=== PATIENT | male | born 1970 | race Caucasian/White ===

== ENCOUNTER 2019-10-31 06:45 | Emergency (ER) | payer BC ==
[2019-10-31 06:59] VITALS: TEMP 98.2
[2019-10-31] MEDS ORDERED: PROPARACAINE 0.5% OPHTH DROPS 15 ML BTL BOTH EYES STA (07:24)
[2019-10-31] MEDS ORDERED: SODIUM CHLORIDE 0.9% 1,000 ML IV ONE (07:44)
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
[2019-10-31 08:11] LABS: Basophils % (A) 0 %; Eosinophils # (A) 0.2 k/uL (0-0.7); Eosinophils % (A) 3 %; HCT 37.1 % (39.0-53.0); HGB 12.3 gm/dL (13.0-17.5); Lymphocytes # (A) 1.2 k/uL (1.0-4.8); Lymphocytes % (A) 17 %; MCH 30.7 pg (25.0-35.0); MCV 93.1 fL (80.0-100.0); Mean Platelet Volume 7.1; Monocytes # (A) 0.4 k/uL (0-1.0); Monocytes % (A) 6 %; Neutrophils % (A) 71 %; Platelet Count 234 k/uL (150-450); RBC 3.99 m/uL (4.30-5.90); WBC 6.9 k/uL (3.8-10.6)
[2019-10-31 08:21] LABS: INR 1.5 (<1.2); Partial Thromboplastin Time 27.7 sec (22.0-30.0); Prothrombin Time 14.5 sec (9.0-12.0)
[2019-10-31 08:25] LABS: African American GFR (CKD) >90 (>60 ml/min/1.73 sqM); Anion Gap 11 mmol/L; Blood Urea Nitrogen 14 mg/dL (9-20); Carbon Dioxide 20 mmol/L (22-30); Chloride 108 mmol/L (98-107); Glucose 101 mg/dL (74-99); Non-African American GFR(CKD) >90 (>60 ml/min/1.73 sqM); Potassium 4.2 mmol/L (3.5-5.1); Sodium 139 mmol/L (137-145)
--- NOTE | 2019-10-31 09:13 | CT ---
EXAMINATION TYPE: CT sinus w con DATE OF EXAM: 10/31/2019 COMPARISON: None HISTORY: yellow tint to vision, black spots in vision, visual loss post tooth extraction. CT DLP: 426.5 mGycm Automated exposure control for dose reduction was used. CONTRAST: CT scan of the facial bones is performed with IV Contrast, patient injected with 100 mL of Isovue 300 . TECHNIQUE: CT scan of the sinuses is performed without contrast, axial images are obtained, coronal r eformatted images are also reviewed. FINDINGS: There is a defect in the left inferior maxillary wall on image 31 of the coronal series. Wi thin the left maxillary sinus there is high density seen on soft tissue window image 31 suggestive of blood products in this patient with recent tooth extraction. There is surrounding moderate mucosal t hickening of the left maxillary sinus. There is scant mucosal thickening of the lateral right maxilla ry sinus. Frontal sinuses are aplastic. Mastoid air cells are well aerated. Periapical lucencies are seen of the left maxillary teeth indicative of dental disease. More cranially there is limitation in evaluation given spray artifact from dental fillings. The orbits are symmetric with no evidence of globe rupture or lens dislocation. Symmetric prominence of the visualized peripheral sulci and ventricular system are likely on the basis of age-related volu me loss. Evaluation of the brain is not optimized given protocol and only partial visualization. No i ntraconal or extraconal mass. IMPRESSION: 1. Focal osseous defect in the left inferior maxillary wall likely at the site of tooth extraction, c orrelate with patient's stated to the extraction site. Above the osseous defect in the dependent left maxillary sinus high density is seen, likely hemorrhage/hematoma. Moderate mucosal thickening of the left maxillary sinus is also noted. Multifocal dental disease is partially visualized. 2. Globes are symmetric. No lens displacement. No intraconal or extraconal mass seen.
[2019-10-31] MEDS ORDERED: RX INFO: IV CONTRAST WAS GIVEN 1 EACH MISC MISCELLANE PRN (09:51)
--- NOTE | 2019-10-31 10:12 | CT ---
EXAMINATION TYPE: CT brain w con DATE OF EXAM: 10/31/2019 COMPARISON: CT sinus of the same date. HISTORY: yellow tint to vision, black spots in vision, visual loss post tooth extraction CT DLP: 426.5 mGycm Automated Exposure Control for Dose Reduction was Utilized. TECHNIQUE: CT scan of the head is performed with IV contrast.,CT scan of the head is performed withou t and with with IV Contrast, patient injected with 100 mL of Isovue 300. FINDINGS: Noncontrast images were not obtained. Only portions of the orbits were scanned. Globes and the visualized portions appear symmetric with no visualization of intraconal or extraconal mass on th e limited images provided. The ventricles and sulci are within normal limits in size. Postcontrast im ages show no suspicious enhancing intraparenchymal mass. The globes are intact and frontal sinuses ar e hypoplastic. Scant mucosal thickening in the ethmoid sinuses. Sphenoid sinus also demonstrate scant mucosal thickening. Mastoid air cells are well aerated. IMPRESSION: 1. As discussed on the CT sinus dictation the same date no intraconal or extraconal mass is seen of t he orbits. Orbits are incompletely visualized on the current exam and better seen on the CT sinus exa m. 2. No abnormal intracranial enhancement. Evaluation for intracranial hemorrhage limited as no unenhan yessi images are submitted. 3. No midline shift or mass effect seen.
[2019-10-31 10:17] VITALS: RESP 16
[2019-10-31 11:06] VITALS: BP 139/78; PULSE 81
== END 2019-10-31 11:06 | disposition home or self-care (01) ==
LOC: EC 06:45
DX: H53.483 Generalized contraction of visual field, bilateral (principal); J34.89 Other specified disorders of nose and nasal sinuses; K91.840 Postprocedural hemorrhage of a digestive system organ or structure following a digestive system procedure; Z87.891 Personal history of nicotine dependence
CPT/HCPCS: 36415; 80048; 85025; 85610; 85730; 70460; 70487; 96360; 96361 ×2; 99284; Q9967

== ENCOUNTER → 2019-11-04 | Outpatient (CLI) | payer BC ==
--- NOTE | 2019-11-04 08:15 | US ---
EXAMINATION TYPE: US carotid duplex BILAT DATE OF EXAM: 11/04/2019 COMPARISON: NONE CLINICAL HISTORY: H53.12 Transient vision loss. Vision loss EXAM MEASUREMENTS: RIGHT: Peak Systolic Velocity (PSV) cm/sec ----- Right CCA: 87.5 ----- Right ICA: 117.7 ----- Right ECA: 123.3 ICA/CCA ratio: 1.3 RIGHT: End Diastole cm/sec ----- Right CCA: 23.7 ----- Right ICA: 52.9 ----- Right ECA: 14.9 LEFT: Peak Systolic Velocity (PSV) cm/sec ----- Left CCA: 77.9 ----- Left ICA: 86.8 ----- Left ECA: 123.3 ICA/CCA ratio: 1.1 LEFT: End Diastole cm/sec ----- Left CCA: 20.3 ----- Left ICA: 35.1 ----- Left ECA: 19.1 VERTEBRALS (direction of flow): Right Vertebral: Antegrade Left Vertebral: Antegrade Rhythm: Normal Bilateral intimal thickening, no elevated velocities, no significant stenosis. IMPRESSION: Mild degree of grayscale atheromatous plaquing with no sonographically evident hemodynam ically significant stenosis within either visualized carotid arterial system. Criteria for Assigning % of Stenosis / Diameter reduction (Estimation based on the indirect measurements of the internal carotid artery velocities (ICA PSV). 1. Normal (no stenosis)=ICA PSV < 125 cm/s: ratio < 2.0: ICA EDV<40 cm/s. 2. Less than 50% stenosis=ICA PSV < 125 cm/s: ratio < 2.0: ICA EDV<40 cm/s. 3. 50 to 69% stenosis=ICA PSV of 125 to 230 cm/s: ration 2.0 ? 4.0: ICA EDV 40-100 cm/s. 4. Greater than 70% stenosis to near occlusion= ICA PSV > 230 cm/s: ratio > 4.0: ICA EDV > 100 cm/s. 5. Near occlusion= ICA PSV velocities may be low or undetectable: variable ratio and ICA EDV. 6. Total occlusion=unable to detect flow.
[2019-11-04 20:36] LABS: Hemoglobin A1C 5.8 % (4.0-6.0)
== END | disposition home or self-care (01) ==
LOC: RADUSWWP 07:22
PROVIDERS: ATTEND Ophthalmology
DX: I67.2 Cerebral atherosclerosis (principal); H53.129 Transient visual loss, unspecified eye; E11.9 Type 2 diabetes mellitus without complications
CPT/HCPCS: 36415; 83036; 93880

== ENCOUNTER 2021-01-24 00:35 | Emergency (ER) | payer BC ==
[2021-01-24 00:49] VITALS: RESP 18
--- NOTE | 2021-01-24 01:13 | XR ---
EXAMINATION TYPE: XR shoulder complete LT DATE OF EXAM: 01/24/2021 COMPARISON: NONE HISTORY: Shoulder pain TECHNIQUE: 3 views FINDINGS: There is some spurring at the AC joint. I see no fracture nor dislocation. Joint spaces are normal. IMPRESSION: No acute abnormality of the left shoulder.
[2021-01-24] MEDS ORDERED: LIDOCAINE 5% PATCH TOPICAL STA (01:56)
[2021-01-24] MEDS ORDERED: KETOROLAC 15 MG/ML 1 ML VIAL IM STA (01:56)
[2021-01-24] MEDS ORDERED: ORPHENADRINE 30 MG/ML 2 ML VIAL IM STA (01:56)
[2021-01-24] MEDS ORDERED: HYDROmorphone 1 MG/ML 1 ML SYRINGE IM STA (01:57)
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
[2021-01-24 02:42] VITALS: BP 126/72; PULSE 72; TEMP 98.1
== END 2021-01-24 02:30 | disposition home or self-care (01) ==
LOC: EC 00:35
DX: M25.512 Pain in left shoulder (principal); M62.838 Other muscle spasm; M79.642 Pain in left hand; I10 Essential (primary) hypertension
CPT/HCPCS: 99283; 96372 ×2; 73030; J2360; J1170; J1885

== ENCOUNTER 2021-10-07 01:32 | Emergency (ER) | payer BC ==
[2021-10-07 01:35] VITALS: TEMP 97.7
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
--- NOTE | 2021-10-07 02:20 | CT ---
EXAMINATION TYPE: CT brain cspine wo con DATE OF EXAM: 10/07/2021 COMPARISON: HISTORY: Fall. Head injury CT DLP: mGycm Automated exposure control for dose reduction was used. Exam without contrast. Ventricles have normal size. There is no mass effect or midline shift. There is no sign of intracrani al hemorrhage. The calvarium is intact. There is normal aeration of the mastoid sinuses. Cervical vertebra have normal alignment. There is minor degenerative spurring in the mid and lower ce rvical spine. No compression fracture. Facet joints are intact. IMPRESSION: Minor degenerative spurring in the cervical spine. No fracture. Negative CT scan of the brain.
[2021-10-07] MEDS ORDERED: HYDROcodone/APAP 5-325MG 1 EACH TAB PO STA (03:22)
[2021-10-07 04:11] VITALS: BP 134/79; PULSE 88; RESP 16
== END 2021-10-07 04:13 | disposition home or self-care (01) ==
LOC: EC 01:32
DX: S09.90XA Unspecified injury of head, initial encounter (principal); I10 Essential (primary) hypertension; W22.09XA Striking against other stationary object, initial encounter
CPT/HCPCS: 70450; 72125; 99284

== ENCOUNTER 2021-10-15 17:48 | Emergency (ER) | payer BC ==
--- NOTE | 2021-10-15 19:24 | CT ---
EXAMINATION TYPE: CT brain cspine wo con DATE OF EXAM: 10/15/2021 COMPARISON: 10/07/2021 HISTORY: Head injury [address] DLP: 1627.1 mGycm Automated exposure control for dose reduction was used. Images of the brain and cervical spine obtained without contrast. Ventricles have normal size. There is no mass effect or midline shift. There is no sign of intracrani al hemorrhage. Calvarium is intact. There is normal aeration of the mastoid sinuses. Cervical vertebra have normal alignment. There is slight narrowing of the disc spaces at C5-6 and C6- 7. Posterior elements are intact. There is no compression fracture. Facet joints are intact. There is some minor degenerative hypertrophic disc changes in the lower cervical spine. IMPRESSION: Negative CT scan of the brain. Negative CT scan of the cervical spine. No change.
[2021-10-15 19:35] LABS: Basophils % (A) 0 %; Eosinophils # (A) 0.1 k/uL (0-0.7); Eosinophils % (A) 1 %; HCT 39.9 % (39.0-53.0); HGB 12.8 gm/dL (13.0-17.5); Lymphocytes % (A) 10 %; MCH 29.3 pg (25.0-35.0); MCHC 32.1 g/dL (31.0-37.0); MCV 91.4 fL (80.0-100.0); Mean Platelet Volume 6.8; Monocytes # (A) 0.4 k/uL (0-1.0); Monocytes % (A) 4 %; Neutrophils % (A) 83 %; Platelet Count 269 k/uL (150-450); RBC 4.36 m/uL (4.30-5.90); RDW 14.2 % (11.5-15.5); WBC 9.6 k/uL (3.8-10.6)
[2021-10-15 19:37] LABS: ALT 20 U/L (4-49); AST 47 U/L (17-59); African American GFR (CKD) >90 (>60 ml/min/1.73 sqM); Albumin 4.7 g/dL (3.5-5.0); Alkaline Phosphatase 137 U/L (38-126); Anion Gap 10 mmol/L; Blood Urea Nitrogen 15 mg/dL (9-20); Calcium 9.3 mg/dL (8.4-10.2); Carbon Dioxide 24 mmol/L (22-30); Chloride 100 mmol/L (98-107); Glucose 129 mg/dL (74-99); Non-African American GFR(CKD) >90 (>60 ml/min/1.73 sqM); Potassium 4.3 mmol/L (3.5-5.1); Sodium 134 mmol/L (137-145); Total Bilirubin 0.5 mg/dL (0.2-1.3); Total Protein 8.9 g/dL (6.3-8.2)
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
[2021-10-15 20:46] LABS: Partial Thromboplastin Time 47.3 sec (22.0-30.0); Prothrombin Time 58.9 sec (9.0-12.0)
[2021-10-15 20:47] VITALS: BP 153/85; PULSE 74; RESP 20; TEMP 98.2
[2021-10-15 20:50] LABS: INR 5.8 (<1.2)
== END 2021-10-15 20:47 | disposition home or self-care (01) ==
LOC: EC 17:48
DX: S06.0X9A Concussion with loss of consciousness of unspecified duration, initial encounter (principal); S00.03XA Contusion of scalp, initial encounter; R40.2412 Glasgow coma scale score 13-15, at arrival to emergency department; I10 Essential (primary) hypertension; W01.198A Fall on same level from slipping, tripping and stumbling with subsequent striking against other object, initial encounter
CPT/HCPCS: 36415; 70450; 72125; 80053; 85025; 85610; 85730; 99284

== ENCOUNTER → 2021-10-19 | Outpatient (CLI) | payer BC ==
[2021-10-19 21:44] LABS: INR 1.04 (0.90-1.11); Prothrombin Time 11.4 sec (9.9-11.9)
== END | disposition home or self-care (01) ==
LOC: LABWHC1 11:08
PROVIDERS: ATTEND Nurse Practitioner Family
DX: K90.89 Other intestinal malabsorption (principal)
CPT/HCPCS: 36415; 85610

== ENCOUNTER 2021-12-14 01:31 | Observation (INO) | payer BC ==
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
[2021-12-14] MEDS ORDERED: ONDANSETRON 4 MG/2 ML VIAL IVP STA (04:00)
[2021-12-14] MEDS ORDERED: SODIUM CHLORIDE 0.9% 1,000 ML IV STA (04:00)
[2021-12-14] MEDS ORDERED: MORPHINE SULFATE 4 MG/ML SYRINGE IV STA (04:00)
--- NOTE | 2021-12-14 04:08 | XR ---
EXAM: XR Abdomen, 2 Views CLINICAL HISTORY: ITS.REASON XR Reason: abdominal pain TECHNIQUE: Frontal view of the abdomen/pelvis with upright view of the abdomen. COMPARISON: No relevant prior studies available. FINDINGS: Intraperitoneal space: No free air. Gastrointestinal tract: Unremarkable. No dilation. Bones/joints: Unremarkable. IMPRESSION: Normal abdominal x-rays.
[2021-12-14 04:37] LABS: Basophils % (A) 0 %; Eosinophils # (A) 0.1 k/uL (0-0.7); Eosinophils % (A) 1 %; HCT 34.4 % (39.0-53.0); HGB 11.8 gm/dL (13.0-17.5); Lymphocytes # (A) 0.9 k/uL (1.0-4.8); Lymphocytes % (A) 11 %; MCH 31.1 pg (25.0-35.0); MCHC 34.3 g/dL (31.0-37.0); MCV 90.6 fL (80.0-100.0); Mean Platelet Volume 6.6; Monocytes # (A) 0.5 k/uL (0-1.0); Monocytes % (A) 6 %; Neutrophils # (A) 6.7 k/uL (1.3-7.7); Neutrophils % (A) 80 %; Platelet Count 194 k/uL (150-450); RBC 3.79 m/uL (4.30-5.90); WBC 8.3 k/uL (3.8-10.6)
[2021-12-14 05:10] LABS: ALT 16 U/L (4-49); AST 24 U/L (17-59); African American GFR (CKD) >90 (>60 ml/min/1.73 sqM); Albumin 3.7 g/dL (3.5-5.0); Alkaline Phosphatase 98 U/L (38-126); Amylase 59 U/L (30-110); Anion Gap 4 mmol/L; Blood Urea Nitrogen 9 mg/dL (9-20); Calcium 8.8 mg/dL (8.4-10.2); Carbon Dioxide 32 mmol/L (22-30); Chloride 102 mmol/L (98-107); Glucose 115 mg/dL (74-99); Lipase 203 U/L (23-300); Non-African American GFR(CKD) >90 (>60 ml/min/1.73 sqM); Potassium 3.9 mmol/L (3.5-5.1); Sodium 138 mmol/L (137-145); Total Bilirubin 0.4 mg/dL (0.2-1.3)
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
[2021-12-14] MEDS ORDERED: MORPHINE SULFATE 4 MG/ML SYRINGE IVP STA (07:21)
[2021-12-14] MEDS ORDERED: PANTOPRAZOLE 40 MG/10 ML VIAL IVP STA (07:22)
[2021-12-14] MEDS ORDERED: NALOXONE 0.4 MG/ML 1 ML VIAL IV PRN (07:28)
[2021-12-14] MEDS ORDERED: ONDANSETRON 4 MG/2 ML VIAL IVP PRN (07:28)
[2021-12-14] MEDS: SODIUM CHLORIDE 0.9% 1,000 ML IV SCH ×3 (07:43→20:12)
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
[2021-12-14] MEDS ORDERED: THIAMINE 100 MG/ML 2 ML VIAL IM STA (10:16)
[2021-12-14] MEDS ORDERED: LORazepam 1 MG TAB PO PRN ×3 (10:16)
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
[2021-12-14] MEDS: MORPHINE SULFATE 4 MG/ML SYRINGE IV PRN (13:11)
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
[2021-12-14] MEDS: HYDROcodone/APAP 10-325MG 1 EACH TAB PO PRN ×2 (17:51→23:57)
[2021-12-14] MEDS: THIAMINE 100 MG TAB PO SCH (17:52)
[2021-12-14] MEDS: FENOFIBRATE 160 MG TAB PO SCH (17:52)
[2021-12-14] MEDS: HEPARIN SODIUM,PORCINE/PF 5,000 UNIT/0.5 ML SYRINGE SQ SCH ×2 (17:52→23:57)
[2021-12-14] MEDS: MAGNESIUM OXIDE 400 MG TAB PO SCH (20:13)
[2021-12-14] MEDS: LOSARTAN 50 MG TAB PO SCH (20:13)
[2021-12-14] MEDS: LEVOTHYROXINE 100 MCG TAB PO SCH (20:13)
[2021-12-14] MEDS: MELATONIN 3 MG TABLET PO SCH (20:57)
[2021-12-15] MEDS: SODIUM CHLORIDE 0.9% 1,000 ML IV SCH ×3 (04:44→22:37)
[2021-12-15 07:25] VITALS: RESP 18
[2021-12-15 08:43] LABS: Basophils # (A) 0.02 X 10*3/uL (0.00-0.10); Basophils % (A) 0.4 %; Eosinophils # (A) 0.12 X 10*3/uL (0.04-0.35); Eosinophils % (A) 2.5 %; HCT 32.8 % (39.6-50.0); HGB 10.6 g/dL (13.0-17.0); Immature Grans, Automated 0.2 %; Lymphocytes # (A) 1.45 X 10*3/uL (0.90-5.00); MCH 29.6 pg (27.0-32.0); MCHC 32.3 g/dL (32.0-37.0); MCV 91.6 fL (80.0-97.0); Mean Platelet Volume 9.5 fL (9.5-12.2); Monocytes # (A) 0.56 X 10*3/uL (0.20-1.00); Monocytes % (A) 11.6 %; NRBC Per 100 WBC 0 /100 WBCS (0.0-0.0); Neutrophils # (A) 2.68 X 10*3/uL (1.80-7.70); Neutrophils % (A) 55.3 %; Platelet Count 165 X 10*3/uL (140-440); RBC 3.58 X 10*6/uL (4.40-5.60); RDW 11.9 % (11.5-14.5); WBC 4.84 X 10*3/uL (4.50-10.00)
[2021-12-15] MEDS ORDERED: NON FORMULARY DRUG (Omeprazole 20 MG Capsule.Dr) PO SCH (09:00)
[2021-12-15] MEDS: MULTIVITAMINS, THERA 1 EACH TAB PO SCH (09:16)
[2021-12-15] MEDS: THIAMINE 100 MG TAB PO SCH ×2 (09:16→17:15)
[2021-12-15] MEDS: HYDROcodone/APAP 10-325MG 1 EACH TAB PO PRN ×3 (09:16→22:37)
[2021-12-15] MEDS: PANTOPRAZOLE 40 MG/10 ML VIAL IV SCH (09:17)
[2021-12-15] MEDS: CITALOPRAM HYDROBROMIDE 20 MG TAB PO SCH (09:17)
[2021-12-15] MEDS: FERROUS SULFATE 325 MG TAB PO SCH (09:17)
[2021-12-15] MEDS: LEVOTHYROXINE 100 MCG TAB PO SCH ×2 (09:17→20:50)
[2021-12-15] MEDS: HEPARIN SODIUM,PORCINE/PF 5,000 UNIT/0.5 ML SYRINGE SQ SCH ×3 (09:17→23:24)
[2021-12-15] MEDS: FOLIC ACID 1 MG TAB PO SCH (09:17)
[2021-12-15 09:28] LABS: African American GFR (CKD) 128.4 (60.0-200.0); Albumin 3.3 g/dL (3.8-4.9); Albumin/Globulin Ratio 1.25 (1.60-3.17); Anion Gap 7.4 mmol/L (10.00-18.00); BUN/Creat Ratio 7.35 Ratio (12.00-20.00); Blood Urea Nitrogen 4.9 mg/dL (9.0-27.0); Calcium 8.7 mg/dL (8.7-10.3); Carbon Dioxide 28.7 mmol/L (20.0-27.5); Globulin 2.6 g/dL (1.6-3.3); Non-African American GFR(CKD) 110.8 (60.0-200.0); Potassium 3.9 mmol/L (3.5-5.5); Total Bilirubin 0.4 mg/dL (0.30-1.20); Total Protein 5.9 g/dL (6.2-8.2)
[2021-12-15 10:50] VITALS: BMI 31.5
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
[2021-12-15] MEDS: MORPHINE SULFATE 4 MG/ML SYRINGE IV PRN (17:09)
[2021-12-15] MEDS: FENOFIBRATE 160 MG TAB PO SCH (17:10)
[2021-12-15] MEDS: LOSARTAN 50 MG TAB PO SCH (20:50)
[2021-12-15] MEDS: MAGNESIUM OXIDE 400 MG TAB PO SCH (20:50)
[2021-12-15] MEDS: MELATONIN 3 MG TABLET PO SCH (22:38)
[2021-12-16 04:00] VITALS: PULSE 66
[2021-12-16] MEDS: SODIUM CHLORIDE 0.9% 1,000 ML IV SCH (06:23)
[2021-12-16] MEDS: LEVOTHYROXINE 100 MCG TAB PO SCH (08:00)
[2021-12-16] MEDS: MULTIVITAMINS, THERA 1 EACH TAB PO SCH (08:00)
[2021-12-16] MEDS: THIAMINE 100 MG TAB PO SCH (08:00)
[2021-12-16] MEDS: FOLIC ACID 1 MG TAB PO SCH (08:00)
[2021-12-16] MEDS: CITALOPRAM HYDROBROMIDE 20 MG TAB PO SCH (08:00)
[2021-12-16] MEDS: FERROUS SULFATE 325 MG TAB PO SCH (08:00)
[2021-12-16] MEDS: PANTOPRAZOLE 40 MG/10 ML VIAL IV SCH (08:00)
[2021-12-16] MEDS: HYDROcodone/APAP 10-325MG 1 EACH TAB PO PRN (08:00)
[2021-12-16] MEDS: HEPARIN SODIUM,PORCINE/PF 5,000 UNIT/0.5 ML SYRINGE SQ SCH (08:01)
[2021-12-16 08:06] VITALS: BP 145/88; TEMP 97.7
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
[2021-12-18] MEDS ORDERED: ERGOCALCIFEROL 1,250 MCG (50,000 IU) CAPSULE PO SCH (09:00)
== END 2021-12-16 12:11 | disposition home or self-care (01) ==
LOC: EC 01:31 → 6NMEDSUR 07:42
PROVIDERS: ADMIT Internal Medicine; ATTEND Internal Medicine
DX: K85.90 Acute pancreatitis without necrosis or infection, unspecified (principal); F10.10 Alcohol abuse, uncomplicated; I10 Essential (primary) hypertension; E78.5 Hyperlipidemia, unspecified; E03.9 Hypothyroidism, unspecified; Z71.41 Alcohol abuse counseling and surveillance of alcoholic; K21.9 Gastro-esophageal reflux disease without esophagitis; F32.A Depression, unspecified; K59.00 Constipation, unspecified; D64.9 Anemia, unspecified; R06.89 Other abnormalities of breathing; E55.9 Vitamin D deficiency, unspecified; Z87.19 Personal history of other diseases of the digestive system; Z87.828 Personal history of other (healed) physical injury and trauma; Z90.49 Acquired absence of other specified parts of digestive tract; Z79.890 Hormone replacement therapy; Z79.899 Other long term (current) drug therapy; Z71.9 Counseling, unspecified; Z82.0 Family history of epilepsy and other diseases of the nervous system; Z80.42 Family history of malignant neoplasm of prostate
CPT/HCPCS: 96376 ×4; 96361 ×4; 96372 ×4; 96374; 96375; 99285; 36415; 80053 ×2; 82150 ×2; 83605; 83615; 83690 ×2; 85025 ×2; 74018; 74176; G0378 ×3; J2270 ×2; J3411; J2405; C9113 ×3; J1644 ×2